=== PATIENT | male | born 1980 | race Caucasian/White ===

== ENCOUNTER 2023-03-21 20:00 | Emergency (ER) | payer BC ==
[2023-03-21] MEDS ORDERED: Amoxicillin 500 MG Cap PO ONE (21:39)
== END 2023-03-21 21:58 | disposition home or self-care (01) ==
LOC: JD.ED 20:00
DX: K02.9 Dental caries, unspecified (principal); F17.210 Nicotine dependence, cigarettes, uncomplicated; Z79.84 Long term (current) use of oral hypoglycemic drugs; Z79.899 Other long term (current) drug therapy
CPT/HCPCS: 99282; A9270; 99283